=== PATIENT | female | born 1960 ===

== ENCOUNTER 2017-03-13 14:33 | Emergency (ER) | payer MEDICAID ==
[2017-03-13 15:01] VITALS: TEMP 98.7; O2SAT 99
[2017-03-13] MEDS ORDERED: Sodium Chloride 0.9% 1,000 ML IV STA (15:02)
--- NOTE | 2017-03-13 15:06 | C.PDOC ---
History Of Present Illness Kalyani Meadows is a 56 year old female, with a past medical history of hypertension, who presents to the emergency department complaining of abdominal pain associated with subjective fever, chills, loose stools, body aches and diaphoresis onset for 4 days. Patient describes the pain as a discomfort and rates it a 3/10, with symptoms worsening overnight. Patient denies any recent travels, dysuria, or vomit. No further medical complaints. PMD: Nathan Varela Time Seen by Provider: 03/13/17 14:38 Chief Complaint (Nursing): Abdominal Pain History Per: Patient History/Exam Limitations: no limitations Onset/Duration Of Symptoms: Days (x4) Current Symptoms Are (Timing): Still Present Severity: Mild Pain Scale Rating Of: 3 Associated Symptoms: Fever, Chills, Diarrhea (loose stools), Other (diaphoresis) . denies: Vomiting Past Medical History Reviewed: Historical Data, Nursing Documentation, Vital Signs Vital Signs: Last Vital Signs Temp 98.7 F 03/13/17 14:45 Pulse 70 03/13/17 14:45 Resp 16 03/13/17 14:45 BP 128/84 03/13/17 14:45 Pulse Ox 99 03/13/17 16:54 - Medical History PMH: Gastritis, HTN, Hypercholesterolemia Family History: States: Unknown Family Hx - Social History Hx Tobacco Use: No Hx Alcohol Use: Yes Hx Substance Use: No Review Of Systems Except As Marked, All Systems Reviewed And Found Negative. Constitutional: Positive for: Fever Gastrointestinal: Positive for: Abdominal Pain. Negative for: Vomiting Genitourinary: Negative for: Dysuria Physical Exam - Physical Exam Additional Physical Exam Comments: Constitutional: No acute distress. Head: Normocephalic. Atraumatic. Eyes: PERRL. ENT: Moist mucous membranes. Neck: Supple. Cardiovascular: Regular rate. Radial pulse 2+ bilaterally. Systolic Murmur Chest: No tenderness. Respiratory: Clear to auscultation bilaterally. GI: Soft. Nontender. Nondistended. Back: No CVA tenderness. Musculoskeletal: No tenderness or swelling of extremities. Skin: No rash. Neurologic: Alert, no focal deficit. ED Course And Treatment - Laboratory Results Result Diagrams: 03/13/17 15:19 03/13/17 15:19 O2 Sat by Pulse Oximetry: 99 (RA) Pulse Ox Interpretation: Normal Medical Decision Making Medical Decision Making: Initial Plan: --Comp Metabolic Panel --Lipase --CBC w/ differential --Pepcid 20 mg IVP --Toradol 30 mg IVP --Zofran Inj 8 mg IVP --NS IV 1,000 ml @ 1,000mls/hr --HCG, Qualitative Urine --Urinalysis --reevaluation Patient states she feels much better. Labs unremarkable. Vital signs normal. Will discharge home, instructed to f/u with PMD, instructed to return to ED for worsening pain, vomiting, fever, dyspnea, or any other problem. Scribe Attestation Written by Joshua Laguna acting as a scribe for Rohith Wong MD All medical record entries made by the Scribe were at my direction and personally dictated by me. I have reviewed the chart and agree that the record accurately reflects my personal performance of the history, physical exam, medical decision making, and the department course for this patient. I have also personally directed, reviewed, and agree with the discharge instructions and disposition. Disposition - Disposition Referrals: Nathan Varela MD [Non-Staff] - Disposition: HOME/ ROUTINE Disposition Time: 16:46 Condition: STABLE Prescriptions: Famotidine/Ca Carb/Mag Hydrox [Pepcid Complete Tablet Chew] 1 each PO BID #28 tab.chew Ibuprofen [Motrin] 1 tab PO Q6 #30 tab Ondansetron ODT [Zofran ODT] 4 mg PO Q8 #12 odt Instructions: Abdominal Pain (ED), Viral Syndrome (ED) Forms: [employer] (Setswana) - Clinical Impression Clinical Impression: Flu-like symptoms, Abdominal pain
[2017-03-13] MEDS ORDERED: Sodium Chloride 0.9% 1,000 ML ONE (15:22)
[2017-03-13 15:23] LABS: BASO % 0.5 % (0.0-2.0); EOS # 0.1 K/uL (0.0-0.7); EOS % 1.3 % (0.0-4.0); HEMATOCRIT 37.6 % (34.0-47.0); LYMPH # 2.7 K/uL (1.0-4.3); MEAN CELL VOLUME 80.3 fL (81.0-99.0); MEAN CORPUSCULAR HEMOGLOBIN 26.6 pg (27.0-31.0); MEAN CORPUSCULAR HGB CONC 33.1 g/dL (33.0-37.0); MEAN PLATELET VOLUME 8.6 fL (7.2-11.7); MONO # 0.7 K/uL (0.0-0.8); MONO % 9.8 % (0.0-10.0); RED CELL DISTRIBUTION WIDTH 14.3 % (11.5-14.5); WHITE BLOOD COUNT 7.5 K/uL (4.8-10.8)
[2017-03-13 15:30] LABS: CHLORIDE 104 mmol/L (98-107)
[2017-03-13 15:31] LABS: POTASSIUM 3.8 mmol/L (3.6-5.2); SODIUM 142 mmol/L (132-148)
[2017-03-13 15:33] LABS: CARBON DIOXIDE 26 mmol/L (22-30); GFR AFRICAN-AMERICAN > 60
[2017-03-13 15:34] LABS: ALB/GLOB RATIO 1.1 (1.0-2.1); ALKALINE PHOSPHATASE 63 U/L (38-126); ALT/SGPT 30 U/L (9-52); AST/SGOT 25 U/L (14-36); BILIRUBIN,TOTAL 0.3 mg/dL (0.2-1.3); BLOOD UREA NITROGEN 13 mg/dL (7-17); CALCIUM 9.2 mg/dl (8.6-10.4); GLUCOSE,RANDOM 95 mg/dL (65-105)
[2017-03-13 16:42] LABS: RBC URINE 4 /hpf (0-3); URINE BACTERIA RARE (<OCC); URINE BILIRUBIN NEGATIVE (NEGATIVE); URINE BLOOD 1+ (NEGATIVE); URINE COLOR Yellow (YELLOW); URINE GLUCOSE (UA) NORMAL (Normal); URINE KETONE NEGATIVE (NEGATIVE); URINE LEUKOCYTE ESTERASE TRACE Leu/uL (Negative); URINE PROTEIN NEGATIVE (NEGATIVE); URINE UROBILINOGEN NORMAL mg/dL (0.2-1.0); WBC URINE 2 /hpf (0-5)
[2017-03-13 17:14] VITALS: BP 145/80; PULSE 69; RESP 18
== END 2017-03-13 17:15 | disposition home or self-care (01) ==
LOC: C.ER 14:33
DX: J11.1 Influenza due to unidentified influenza virus with other respiratory manifestations (principal); R10.9 Unspecified abdominal pain
CPT/HCPCS: 80053; 81001; 83690; 84703; 85025; 96361; 96374; 96375; 99285; J1885; J2405; J7040

== ENCOUNTER 2018-02-11 14:45 | Emergency (ER) | payer MEDICAID ==
[2018-02-11 15:03] VITALS: BMI 35.7
--- NOTE | 2018-02-11 15:29 | C.PDOC ---
History Of Present Illness 57yo female, history of HTN, high cholesterol, comes to ER for evaluation c/o left leg pain for a month. Worse with movement. Notes some swelling to both legs. She denies any trauma or injury to the leg. She also denies any weakness, numbness, redness, back pain, chest pain or shortness of breath. 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: no limitations Onset/Duration Of Symptoms: Days Current Symptoms Are (Timing): Still Present Past Medical History Reviewed: Historical Data, Nursing Documentation, Vital Signs Vital Signs: Last Vital Signs Temp 98.3 F 02/11/18 16:11 Pulse 54 L 02/11/18 16:11 Resp 18 02/11/18 16:11 BP 152/83 H 02/11/18 16:11 Pulse Ox 99 02/11/18 16:50 - Medical History PMH: Gastritis, HTN, Hypercholesterolemia Surgical History: No Surg Hx Family History: States: Unknown Family Hx - Social History Hx Tobacco Use: No Hx Alcohol Use: Yes Hx Substance Use: No Review Of Systems Cardiovascular: Negative for: Chest Pain Respiratory: Negative for: Shortness of Breath Musculoskeletal: Positive for: Leg Pain (left) Neurological: Negative for: Weakness, Numbness Physical Exam - Physical Exam Appears: Non-toxic, No Acute Distress Skin: Normal Color, Warm Head: Atraumatic, Normacephalic Eye(s): bilateral: Normal Inspection, EOMI Nose: Normal Oral Mucosa: Moist Neck: Normal ROM, Supple Chest: Symmetrical Cardiovascular: Rhythm Regular Respiratory: Normal Breath Sounds, No Accessory Muscle Use Gastrointestinal/Abdominal: Soft, No Tenderness, Other (obese) Extremity: Normal ROM, Tenderness (diffuse leg tenderness, no redness), Pedal Edema (b/l ), Capillary Refill (<2 sec), No Deformity Extremity: Bilateral: Normal Color And Temperature, Normal ROM Pulses: Left Dorsalis Pedis: Normal, Right Dorsalis Pedis: Normal Neurological/Psych: Oriented x3, Normal Motor, Normal Sensation ED Course And Treatment - Laboratory Results Result Diagrams: 02/11/18 16:27 02/11/18 16:27 O2 Sat by Pulse Oximetry: 99 (RA) Pulse Ox Interpretation: Normal Progress Note: Venous Duplex scan LLE ordered which was read as negative. No signs of infection. No trauma. Pulse strong. Instructed to follow up with PMD in 1-2 days. Technical Marketing Consultant used to ensure understanding. Case discussed with Dr Sullivan, agreed upon plan and discharge. Disposition - Disposition Disposition: HOME/ ROUTINE Disposition Time: 16:48 Condition: STABLE Additional Instructions: Vaya a robles mdico o la clnica en 2-5 key sin falta, para mas evaluacin. [place] los medicamentos mara indicado. Volver a la héctor de emergencia en cualquier momento si los sntomas persisten o empeoran. 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 - Scribe Statement The provider has reviewed the documentation as recorded by the Amaraibolga Mazariegos Provider Attestation: All medical record entries made by the Scribe were at my direction and personally dictated by me. I have reviewed the chart and agree that the record accurately reflects my personal performance of the history, physical exam, medical decision making, and the department course for this patient. I have also personally directed, reviewed, and agree with the discharge instructions and disposition.
[2018-02-11] MEDS ORDERED: Naproxen 550 mg Tab PO STA (15:38)
[2018-02-11] MEDS ORDERED: Naproxen 550 mg Tab PO ONE (16:06)
[2018-02-11 16:13] VITALS: BP 152/83; PULSE 54; RESP 18; TEMP 98.3
[2018-02-11 16:31] LABS: BASO % 0.4 % (0.0-2.0); EOS # 0.1 K/uL (0.0-0.7); EOS % 1.6 % (0.0-4.0); HEMOGLOBIN 11.8 g/dL (11.0-16.0); LYMPH # 3.7 K/uL (1.0-4.3); MEAN CELL VOLUME 79.5 fL (81.0-99.0); MEAN CORPUSCULAR HEMOGLOBIN 26.4 pg (27.0-31.0); MEAN CORPUSCULAR HGB CONC 33.1 g/dL (33.0-37.0); MEAN PLATELET VOLUME 8.3 fL (7.2-11.7); MONO # 0.5 K/uL (0.0-0.8); MONO % 7.1 % (0.0-10.0); NEUT # 3.2 K/uL (1.8-7.0); NEUT % 41.9 % (50.0-75.0); RBC 4.46 Mil/uL (3.80-5.20); RED CELL DISTRIBUTION WIDTH 14.1 % (11.5-14.5); WHITE BLOOD COUNT 7.6 K/uL (4.8-10.8)
[2018-02-11 16:46] LABS: ALB/GLOB RATIO 1.4 (1.0-2.1); ALBUMIN 4.1 g/dL (3.5-5.0); ALT/SGPT 36 U/L (9-52); AST/SGOT 26 U/L (14-36); BLOOD UREA NITROGEN 14 mg/dL (7-17); CALCIUM 8.6 mg/dl (8.6-10.4); GFR NON-AFRICAN AMERICAN > 60
[2018-02-11 16:50] VITALS: O2SAT 99
--- NOTE | 2018-02-14 10:32 | VASCLAB ---
Date of service: 02/11/2018 PROCEDURE: Left Lower Extremity Venous Duplex Exam. HISTORY: Pain PRIORS: None. TECHNIQUE: Left common femoral, femoral, popliteal and posterior tibial, peroneal and great saphenous veins were evaluated. Flow was assessed with color Doppler, compressibility, assessment of phasic flow and augmentation response. Report prepared by HA Dennis FINDINGS: LEFT: 1. Common Femoral Vein: 1.1. Compressibility - Fully compressible: Thrombus - None : Flow - Phasic: Augmentation -Normal: Reflux - None. 2. Femoral Vein: 2.1. Compressibility - Fully compressible: Thrombus - None: Flow - Phasic: Augmentation -Normal: Reflux - None. 3. Popliteal Vein: 3.1. Compressibility - Fully compressible: Thrombus - None: Flow - Phasic: Augmentation -Normal: Reflux - None. 4. Posterior Tibial Vein: 4.1. Compressibility - Fully compressible: Thrombus - None: Flow - Phasic: Augmentation -Normal: Reflux - None. 5. Peroneal Vein: 5.1. Compressibility - Fully compressible: Thrombus - None: Flow - Phasic: Augmentation -Normal: Reflux - None. 6. Great Saphenous Vein: 6.1. Compressibility - Fully compressible: Thrombus - None: Flow - Phasic: Augmentation - Normal: Reflux - None. OTHER FINDINGS: IMPRESSION: No evidence of deep or superficial vein thrombosis of the left lower extremity with excellent venous flow. Normal valve function noted of the left side. Normal venous flow noted in the right common femoral vein.
== END 2018-02-11 16:30 | disposition home or self-care (01) ==
LOC: C.ER 14:45
DX: M79.605 Pain in left leg (principal); I10 Essential (primary) hypertension; E78.00 Pure hypercholesterolemia, unspecified

== ENCOUNTER 2018-09-13 17:44 | Emergency (ER) | payer MEDICAID ==
[2018-09-13 17:44] VITALS: BMI 35.7
[2018-09-13 18:16] VITALS: BP 168/97; PULSE 69; RESP 18; TEMP 98.6; O2SAT 99
[2018-09-13] MEDS ORDERED: Promethazine/Cod 6.25mg-10mg/5ml Syr UD PO STA (19:40)
[2018-09-13] MEDS ORDERED: Albuterol 0.083% Inhal Sol (2.5 mg/3 mL) UD ONE (19:43)
[2018-09-13] MEDS ORDERED: Promethazine DM 6.25 mg-15 mg/5 ml Syrup ONE (19:57)
[2018-09-13] MEDS: Albuterol 0.083% Inhal Sol (2.5 mg/3 mL) UD INH SCH (20:02)
--- NOTE | 2018-09-13 20:23 | C.PDOC ---
History Of Present Illness 58 year old female presents chest congestion, cough, and fever for the past 3 weeks. Patient took tylenol with no relief, she has not seen a doctor for these symptoms. She reports she has some SOB when coughing. Denies fever or chest pain. Patient also complains of pain to the bilateral knees for the past 2 weeks. Denies weakness or numbness. Time Seen by Provider: 09/13/18 19:26 Chief Complaint (Nursing): Flu-like Symptoms History Per: Patient History/Exam Limitations: no limitations Onset/Duration Of Symptoms: Days Current Symptoms Are (Timing): Still Present Sick Contacts (Context): None Associated Symptoms: Fever, Cough, Other (Chest congestion. Knee pain.) Recent travel outside of the [place]: No Past Medical History Reviewed: Historical Data, Nursing Documentation, Vital Signs Vital Signs: Last Vital Signs Temp 98.6 F 09/13/18 18:13 Pulse 69 09/13/18 18:13 Resp 18 09/13/18 18:13 BP 168/97 H 09/13/18 18:13 Pulse Ox 99 09/13/18 18:13 - Medical History PMH: Gastritis, HTN, Hypercholesterolemia Family History: States: Unknown Family Hx - Social History Hx Tobacco Use: No Hx Alcohol Use: Yes Hx Substance Use: No Review Of Systems Constitutional: Positive for: Fever Cardiovascular: Negative for: Chest Pain, Palpitations Respiratory: Positive for: Cough, Other (Chest congestion) Gastrointestinal: Negative for: Nausea, Vomiting Musculoskeletal: Positive for: Other (Knee pain) Neurological: Negative for: Weakness, Numbness Physical Exam - Physical Exam Appears: Non-toxic Skin: Normal Color, Warm Head: Atraumatic, Normacephalic Eye(s): bilateral: Normal Inspection Ear(s): Bilateral: Normal Nose: Normal Oral Mucosa: Moist Throat: Normal, No Erythema, No Exudate Neck: Normal, Supple Chest: Symmetrical, No Tenderness Cardiovascular: Rhythm Regular Respiratory: Decreased Breath Sounds, No Rales, Rhonchi, No Wheezing, Other (Congestion) Extremity: Normal ROM (x4), No Tenderness, No Deformity, No Swelling Pulses: Left Dorsalis Pedis: Normal, Right Dorsalis Pedis: Normal Neurological/Psych: Oriented x3, Normal Speech, Normal Motor, Normal Sensation Gait: Steady ED Course And Treatment O2 Sat by Pulse Oximetry: 99 - Radiology CXR: Interpreted by Me, Viewed By Me CXR Interpretation: Yes: No Acute Disease. No: Infiltrates Progress Note: CXR ordered, results were negative. Phenergan w/ codiene, prednisone, and albuterol administered. Patient is resting comfortaly in no acute respiratory distress, vitals are stable, will discharge home with Rx and instructions to follow up with PMD. Disposition - Disposition Referrals: [facility] [Outside] Disposition: HOME/ ROUTINE Disposition Time: 20:19 Condition: STABLE Additional Instructions: Please follow up with PMD Take medications as directed Increase fluids Return to ER if worse Prescriptions: Albuterol HFA [Ventolin HFA 90 mcg/actuation (8 g)] 2 puff IH [id number] #1 inhaler Azithromycin [Zithromax] 250 mg PO DAILY #6 tab Ibuprofen [Motrin] 600 mg PO Q6H #20 tab Losartan/Hydrochlorothiazide [Hyzaar 100-25 Tablet] 1 tab PO DAILY #14 tablet predniSONE [Prednisone] 40 mg PO DAILY #8 tab Promethazine DM [Phenergan DM Syrup] 5 ml PO QID #100 ml Instructions: Acute Bronchitis, Adult (DC) Forms: [employer] (Pashto) - Clinical Impression Clinical Impression: Bronchitis - 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 - Scribe Statement The provider has reviewed the documentation as recorded by the Amaraibolga Hughes All medical record entries made by the Amaraibolga were at my direction and personally dictated by me. I have reviewed the chart and agree that the record accurately reflects my personal performance of the history, physical exam, medical decision making, and the department course for this patient. I have also personally directed, reviewed, and agree with the discharge instructions and disposition.
--- NOTE | 2018-09-14 10:58 | RAD ---
HISTORY: COUGH, CONGESTION COMPARISON: Chest x-ray performed 04/10/17 TECHNIQUE: Chest PA and lateral FINDINGS: Examination limited by habitus. LUNGS: Mild atelectasis or infiltrate within the medial right lower lobe. Please note that chest x-ray has limited sensitivity for the detection of pulmonary masses. PLEURA: No significant pleural effusion identified. No definite pneumothorax . CARDIOVASCULAR: Heart size appears within normal limits. Atherosclerotic calcifications of the aorta. OSSEOUS STRUCTURES: Degenerative changes of the spine. VISUALIZED UPPER ABDOMEN: Unremarkable. OTHER FINDINGS: None. IMPRESSION: Mild atelectasis or infiltrate within the medial right lower lobe.
== END 2018-09-13 21:06 | disposition home or self-care (01) ==
LOC: C.ER 17:44
DX: J40 Bronchitis, not specified as acute or chronic (principal)